=== PATIENT | male | born 1955 ===

== ENCOUNTER → 2025-02-15 09:05 | Outpatient (CLI) | payer OTHER ==
[2025-02-15 09:34] LABS: EOS # 0.20 (0.04-0.54); EOS % 2.9 % (0.7-7.0); LYMPH # 2.00 (1.18-3.74); LYMPH % 29.3 % (19.3-53.1); MEAN PLATELET VOLUME 9.50 fl (9.4-12.4); MONO # 0.56 (0.24-0.82); MONO % 8.2 % (4.7-12.5); NEUT # 3.86 (1.56-6.13); NEUT % 56.6 % (34.0-71.1); RED CELL DISTRIBUTION WIDTH 12.8 % (11.6-14.4)
[2025-02-15 09:38] LABS: BASO % 2.3 % (0.1-1.2)
[2025-02-15 10:01] LABS: INR 0.97
[2025-02-15 10:07] LABS: ALT/SGPT 24.0 U/L (12-78); AST/SGOT 29.0 U/L (15-37); BILIRUBIN TOTAL 0.34 mg/dL (0.3-1.2); BUN CREA RATIO 10.0 (7.0-25.0); CREATININE SERUM 0.77 mg/dL (0.70-1.30); GFR 99.88; GLOBULINA 3.3 G/DL (2.4-3.5); GLUCOSE FASTING 92.0 mg/dL (65-100); OSMOLALITY SERUM 289.0 MOSM/KG (275-295)
== END | disposition home or self-care (01) ==
LOC: RAD 09:05
PROVIDERS: ATTEND Ophthalmology
DX: Z01.811 Encounter for preprocedural respiratory examination (principal)